=== PATIENT | male | born 1950 | race Caucasian/White ===

== ENCOUNTER → 2025-01-16 08:59 | Outpatient (REF) | payer BC, SELFPAY | LOC: HWRAD 08:59 | PROVIDERS: ATTENDING PHYSICIAN Specialist; FAMILY PHYSICIAN Family Medicine | DX: N20.0 Calculus of kidney (principal) | CPT/HCPCS: 74176 ==

== ENCOUNTER → 2025-02-11 09:43 | Outpatient (REF) | payer BC, SELFPAY | LOC: EMG 09:43 | PROVIDERS: ATTENDING PHYSICIAN Family Medicine; FAMILY PHYSICIAN Family Medicine | DX: M54.12 Radiculopathy, cervical region (principal); R20.0 Anesthesia of skin | CPT/HCPCS: 95886; 95909 ==